=== PATIENT | male | born 1990 | race Caucasian/White ===

== ENCOUNTER 2018-07-16 00:14 | Inpatient (IN) | payer MEDICAID, OTHER ==
[2018-07-16] MEDS: ONDANSETRON 4 MG TAB PO (00:57)
[2018-07-16] MEDS: LIDOCAINE/MYLANTA 40 ML BTL PO (00:57)
[2018-07-16 01:02] LABS: ADD MAN DIFF? NO
[2018-07-16 01:04] LABS: BASOPHIL # 0.1 10^3/ul (0.0-0.1); BASOPHILS % 0.3 % (0.0-2.0); EOSINOPHILS # 0.1 10^3/ul (0.0-0.5); EOSINOPHILS % 0.4 % (0.0-7.0); HEMATOCRIT 45.6 % (42.0-52.0); HEMOGLOBIN 15.2 g/dl (14.0-18.0); LYMPHOCYTES # 3.7 10^3/ul (0.8-2.9); LYMPHOCYTES % 19.6 % (15.0-51.0); MEAN CORPUSCULAR HGB CONC 33.3 g/dl (32.0-37.0); MEAN CORPUSCULAR VOLUME 89.9 fl (82.0-101.0); MEAN PLATELET VOLUME 10.8 fl (7.4-10.4); MONOCYTE # 1.3 10^3/ul (0.3-0.9); MONOCYTES % 6.6 % (0.0-11.0); NEUTROPHIL # 13.8 10^3/ul (1.6-7.5); NEUTROPHILS % 72.7 % (39.0-77.0); PLATELET COUNT 291 10^3/UL (140-415); RED BLOOD COUNT 5.07 10^6/ul (4.70-6.10); RED CELL DISTRIBUTION WIDTH 12.9 % (11.5-14.5)
[2018-07-16 01:07] LABS: ADD UMIC NO; UR ASCORBIC ACID NEGATIVE (NEGATIVE); UR BILIRUBIN (Dip) NEGATIVE (NEGATIVE); UR BLOOD (Dip) NEGATIVE (NEGATIVE); UR CLARITY CLEAR (CLEAR); UR COLOR YELLOW (YELLOW); UR GLUCOSE (Dip) NEGATIVE (NEGATIVE); UR KETONES (Dip) NEGATIVE (NEGATIVE); UR LEUKOCYTE ESTERASE (Dip) NEGATIVE Leu/ul (NEGATIVE); UR NITRITE (Dip) NEGATIVE (NEGATIVE); UR SPECIFIC GRAVITY (Dip) 1.019 (1.003-1.030); UR TOTAL PROTEIN (Dip) NEGATIVE (NEGATIVE); UR UROBILINOGEN (Dip) NEGATIVE (NEGATIVE)
[2018-07-16 01:38] LABS: ALANINE AMINOTRANSFERASE 36 IU/L (13-69); ALBUMIN 5.1 g/dl (3.3-4.9); ALBUMIN/GLOBULIN RATIO 1.45; ALKALINE PHOSPHATASE 112 IU/L (42-121); AMYLASE 66 U/L (11-123); ANION GAP 13 (5-13); ASPARTATE AMINO TRANSFERASE 36 IU/L (15-46); BILIRUBIN,INDIRECT 0.4 mg/dl (0-1.1); BILIRUBIN,TOTAL 0.4 mg/dl (0.2-1.3); BLOOD UREA NITROGEN 14 mg/dl (7-20); CARBON DIOXIDE 30 mmol/L (21-31); CHLORIDE 99 mmol/L (97-110); CREATININE 0.85 mg/dl (0.61-1.24); Estimated GFR > 60 mL/min (>60); GLUCOSE 110 mg/dl (70-220); LIPASE 34 U/L (23-300); POTASSIUM 4.2 mmol/L (3.5-5.1); SODIUM 142 mmol/L (135-144); TOTAL PROTEIN 8.6 g/dl (6.1-8.1)
[2018-07-16] MEDS: PIPER-TAZO 3.375 GM IV (PMX) 100 ML IVPB ×6 (02:19→23:40)
[2018-07-16] MEDS: SOD CHLORIDE 0.9% 1,000 ML IV (02:19)
[2018-07-16] MEDS: DEXTROSE 5%-0.45% NACL 1,000 ML IV ×2 (05:23→15:49)
[2018-07-16] MEDS ORDERED: ONDANSETRON 4 MG INJ IV (05:30)
[2018-07-16 12:01] LABS: PROTIME 13.3 Sec (11.9-14.9)
[2018-07-16 12:02] LABS: PARTIAL THROMBOPLASTIN TIME 26.6 Sec (23.0-35.0)
[2018-07-16] MEDS ORDERED: MIDAZOLAM 1 MG/ML 2 ML INJ (12:56)
[2018-07-16] MEDS ORDERED: PROPOFOL 20 ML (12:56)
[2018-07-16] MEDS ORDERED: FENTAnyl 50 MCG/ML VIAL (12:56)
[2018-07-16] MEDS ORDERED: ROPIVACAINE 0.5 % 30 ML VIAL (12:56)
[2018-07-16] MEDS ORDERED: ROCURONIUM 50 MG INJ (12:56)
[2018-07-16] MEDS ORDERED: CEFAZOLIN 1 GM INJ (12:56)
[2018-07-16] MEDS: BUPIVACAINE 0.25%/EPI (MDV) 50 ML VIAL INJ (13:33)
[2018-07-16] MEDS: LIDOCAINE 1% (STERILE-PAK) 30 ML INJ (13:34)
[2018-07-16] MEDS ORDERED: NEOSTIGMINE 3 MG/3 ML SYRINGE (13:41)
[2018-07-16] MEDS ORDERED: GLYCOPYRROLATE 0.4 MG INJ (13:41)
[2018-07-16] MEDS ORDERED: DEXAMETHASONE 4 MG/ML 1 ML INJ (13:43)
[2018-07-16] MEDS ORDERED: KETOROLAC 30 MG INJ (13:43)
[2018-07-16] MEDS ORDERED: ONDANSETRON 4 MG INJ (13:43)
[2018-07-16] MEDS ORDERED: METOCLOPRAMIDE 10 MG INJ (13:43)
[2018-07-16] MEDS ORDERED: DIPHENHYDRAMINE 50 MG INJ IV (14:30)
[2018-07-16] MEDS ORDERED: MEPERIDINE 25 MG INJ IV (14:30)
[2018-07-16] MEDS ORDERED: EPHEDrine SULFATE 50 MG/5 ML SYG IV (14:30)
[2018-07-16] MEDS ORDERED: HYDROmorphONE 1 MG/5 ML IV SYRINGE IV (14:30)
[2018-07-16] MEDS ORDERED: METOCLOPRAMIDE 10 MG INJ IV (14:30)
[2018-07-16] MEDS ORDERED: FENTAnyl 50 MCG/ML VIAL IV ×3 (14:30)
[2018-07-16] MEDS ORDERED: OXYCODONE/ACETAMINOPHEN (5/325) TAB PO (14:30)
[2018-07-16] MEDS: HYDROmorphONE 1 MG/5 ML IV SYRINGE IV ×2 (14:59→15:06)
[2018-07-16] MEDS: ONDANSETRON 4 MG INJ IV (14:59)
[2018-07-16] MEDS: morphine 2 MG INJ IV (17:33)
[2018-07-17] MEDS: DEXTROSE 5%-0.45% NACL 1,000 ML IV ×2 (01:30→03:57)
[2018-07-17] MEDS: PIPER-TAZO 3.375 GM IV (PMX) 100 ML IVPB ×2 (06:30→12:23)
[2018-07-17] MEDS: morphine 2 MG INJ IV (06:36)
== END 2018-07-17 13:40 | disposition home or self-care (01) | DRG 343 ==
LOC: FTE 00:14 → MS1 03:09
PROC: 0DTJ4ZZ Resection of Appendix, Percutaneous Endoscopic Approach (ICD-10-PCS; principal; 2018-07-16 12:00)
DX: K35.80 Unspecified acute appendicitis (principal); K40.20 Bilateral inguinal hernia, without obstruction or gangrene, not specified as recurrent; F17.200 Nicotine dependence, unspecified, uncomplicated
CPT/HCPCS: 36415; 74176; 80053; 81003; 82150; 83690; 85025; 85610; 85730; 88304; 96374; 99285-25